=== PATIENT | female | born 1985 | race Two or more races ===

== ENCOUNTER 2021-08-10 09:00 | Outpatient (CLI) | payer OTHER | END 2021-08-10 09:30 | disposition home or self-care (01) | LOC: PPH VACUNA 09:00 | PROVIDERS: ATTEND Emergency Medicine Pediatric Emergency Medicine | DX: Z23 Encounter for immunization (principal) ==

== ENCOUNTER 2023-12-19 13:34 | Outpatient (CLI) | payer OTHER | END 2023-12-19 13:43 | disposition home or self-care (01) | LOC: SONOGRAMA 13:34 | DX: R10.2 Pelvic and perineal pain (principal) ==